=== PATIENT | male | born 1955 | race Caucasian/White ===

== ENCOUNTER 2017-03-22 06:07 | Emergency (ER) | payer OTHER ==
[2017-03-22 06:15] VITALS: BP 159/98
[2017-03-22 06:27] LABS: BILIRUBIN,URINE NEGATIVE (NEGATIVE); GLUCOSE, URINE (UA) NEGATIVE (NEGATIVE); KETONES,URINE (UA) NEGATIVE (NEGATIVE); LEUKOCYTE ESTERASE, URINE NEGATIVE (NEGATIVE); NITRITE,URINE NEGATIVE (NEGATIVE); OCCULT BLOOD,URINE LARGE (NEGATIVE); PROTEIN,URINE 30 mg/dL (NEGATIVE); UROBILINOGEN,URINE 0.2 (NORMAL) E.U./dL (NORMAL)
[2017-03-22 06:55] LABS: CLARITY,URINE CLOUDY (CLEAR)
[2017-03-22 06:56] LABS: BACTERIA,URINE None Seen /HPF (None Seen); RBC,URINE TNTC /HPF (0-5); SQUAMOUS EPITHELIAL CELL,UR RARE Squamous (<= Few)
[2017-03-22] MEDS ORDERED: SODIUM CHLORIDE 0.9% 1,000 ML IV ONE (06:59)
--- NOTE | 2017-03-22 07:02 | ED Physician Documentation ---
PD HPI ABD PAIN - Stated complaint Stated Complaint: KIDNEY PX - Chief complaint Chief Complaint: General - History obtained from History obtained from: Patient - History of Present Illness Timing - onset: How many days ago (2) Timing - duration: Days (2) Timing - details: Gradual onset, Still present, Waxing and waning Quality: Sharp, Pain Location: Suprapubic Associated symptoms: No: Fever, Nausea, Vomiting Similar symptoms before: Diagnosis (kidney stones) Recently seen: Not recently seen - Additional information Additional information: 62-year-old male who has a history of multiple prior kidney stones has developed pain in the bladder and a sensation that he is not able to urinate. He has been able to urinate since he arrived here to the emergency department and has had improvement in his pain. He describes the pain as a discomfort in his bladder area. He has had 12 kidney stones previously 9 of which have been removed surgically or with lithotripsy. He has had a urologist at [facility] and these doctors are no longer on his plan is he has had to switch to [place]. Review of Systems Constitutional: denies: Fever Nose: denies: Congestion Throat: denies: Sore throat Cardiac: denies: Chest pain / pressure, Palpitations Respiratory: denies: Dyspnea, Cough GI: reports: Abdominal Pain. denies: Nausea, Vomiting, Constipation, Diarrhea : reports: Dysuria, Unable to Void PD PAST MEDICAL HISTORY - Past Medical History Past Medical History: Yes Cardiovascular: Coronary artery disease : Kidney stones - Past Surgical History Past Surgical History: Yes Cardiovascular: CABG - Present Medications Home Medications: Ambulatory Orders Medication Instructions Recorded Confirmed Aspirin [Aspirin EC] 1 tab PO DAILY 03/22/17 03/22/17 Cholecalciferol (Vitamin D3) 4,000 unit PO DAILY 03/22/17 03/22/17 [Vitamin D3] Folic Acid [Folic Acid] 1 tab PO DAILY 03/22/17 03/22/17 HYDROcod/ACETAM 5/325 [[place] 5/325] 1 - 2 ea PO Q6H PRN #15 tablet 03/22/17 Lisinopril [Prinivil] 1 tab PO DAILY 03/22/17 03/22/17 Metoprolol Succinate [Toprol Xl] 1 tab PO DAILY 03/22/17 03/22/17 Niacin (Inositol Niacinate) 2,000 mg PO DAILY 03/22/17 03/22/17 [Niacin 500 mg Capsule] Sildenafil Citrate [Viagra] 1 tab PO PRN PRN 03/22/17 03/22/17 Simvastatin [Zocor] 80 mg PO DAILY 03/22/17 03/22/17 Tamsulosin HCl [Flomax] 0.4 mg PO DAILY #10 cap.er.24h 03/22/17 hydroCHLOROthiazide 1 tab PO DAILY 03/22/17 03/22/17 [Hydrochlorothiazide] - Allergies Allergies/Adverse Reactions: Allergies Allergy/AdvReac Type Severity Reaction Status Date / Time No Known Drug Allergies Allergy Verified 03/22/17 06:15 - Social History Does the pt smoke?: No Smoking Status: Never smoker Does the pt drink ETOH?: No Substance Use and Type: Marijuana - Immunizations Immunizations are current?: Yes PD ED PE NORMAL - Vitals Vital signs reviewed: Yes (Hypertensive) - General General: Alert and oriented X 3, No acute distress, Well developed/nourished - HEENT HEENT: Atraumatic, PERRL - Cardiac Cardiac: RRR, No murmur - Respiratory Respiratory: No respiratory distress, Clear bilaterally - Abdomen Abdomen: Soft, Non tender - Back Back: No CVA TTP, No spinal TTP - Derm Derm: Normal color, Warm and dry, No rash - Extremities Extremities: No deformity, No edema - Neuro Neuro: No motor deficit, No sensory deficit Eye Opening: Spontaneous Motor: Obeys Commands Verbal: Oriented GCS Score: 15 - Psych Psych: Normal mood, Normal affect Results - Vitals Vitals: Vital Signs - 24 hr 03/22/17 06:13 Temperature 36.3 C L Heart Rate 99 Respiratory 18 Rate Blood Pressure 159/98 H O2 Saturation 96 Oxygen O2 Source Room air - Labs Labs: Laboratory Tests 03/22/17 03/22/17 03/22/17 06:20 07:08 07:08 WBC 10.4 RBC 4.59 L Hgb 14.6 Hct 43.5 MCV 95.0 H MCH 31.8 H MCHC 33.5 RDW 14.4 Plt Count 250 MPV 7.7 Neut # 7.1 H Lymph # 2.1 [place] # 1.1 H Eos # 0.1 Baso # 0.0 Absolute Nucleated RBC 0.01 Nucleated RBC % 0.0 Sodium 138 Potassium 3.2 L Chloride 101 Carbon Dioxide 24 Anion Gap 13.0 BUN 22 H Creatinine 1.0 Estimated GFR (MDRD) 76 L Glucose 161 H Calcium 9.7 Total Bilirubin 0.7 AST 33 ALT 19 Alkaline Phosphatase 46 Total Protein 7.4 Albumin 4.5 Globulin 2.9 Albumin/Globulin Ratio 1.6 Lipase 24 Urine Color YELLOW Urine Clarity CLOUDY Urine pH 6.0 Ur Specific [place] >=1.030 H Urine Protein 30 H Urine Glucose (UA) NEGATIVE Urine Ketones NEGATIVE Urine Occult Blood LARGE H Urine Nitrite NEGATIVE Urine Bilirubin NEGATIVE Urine Urobilinogen 0.2 (NORMAL) Ur Leukocyte Esterase NEGATIVE Urine RBC TNTC H Urine WBC 0-3 Ur Squamous Epith Cells RARE Squamous Urine Bacteria None Seen Ur Microscopic Review INDICATED Urine Culture Comments NOT INDICATED - Rads (name of study) CT abd/pel without Radiology: Prelim report reviewed (Impression: 1. Moderate right hydronephrosis down to 2 adjacent calcifications or bilobed calcification measuring total 6 mm at the right ureterovesicular junction either in the intramural portion of the ureter or within the bladder. 2. Nonobstructing bilateral renal calcifications detailed above, right renal cysts. 3. Right adrenal 1.8 cm nodule. If there is no history of cancer follow-up can be at 12 months. If there is a history of cancer CT adrenal protocol recommended. 4. Diverticulosis. 5. At least 5 subcentimeter densities in the liver too small to characterize on noncontrast CT. 6.Other incidental findings as detailed above.) , EMP read indepedently, See rad report Procedures - IVC sono (time) 0650 Bedside IVC sono: IVC measures (cm) (1.02), IVC collapsed c insp (cm) (complete) , Dehydration (est 1+ liter deficit) PD MEDICAL DECISION MAKING - ED course Complexity details: considered differential, d/w patient ED course: 62-year-old male with a history of multiple kidney stones. He has not been able to Lateralize his stone pain previously. He does have suprapubic pain and a sensation today that he is unable to urinate. When he arrives to the emergency department he is able to urinate and bladder scanning following that is without urine. This is checked with a bedside ultrasound and confirmed. On bedside ultrasound as well he does have evidence of hydronephrosis on the right and not on the left both kidneys are sonographically nontender. He is dehydrated on interrogation of the inferior vena cava. IV is begun is given saline for hydration and a CT scan of the abdomen pelvis is obtained demonstrating a stone at the UVC or into the bladder. He is provided pain medication and he will follow up with Tommy for referral to urology as he has a 13.5mm stone on the left that will need lithotripsy. Departure - Departure Disposition: 01 Home, Self Care Clinical Impression: Ureterolithiasis Instructions: ED Stone Renal W Colic Follow-Up: Your, doctor [Other] Prescriptions: HYDROcod/ACETAM 5/325 [[place] 5/325] 1 - 2 ea PO Q6H PRN #15 tablet PRN Reason: Pain Tamsulosin HCl [Flomax] 0.4 mg PO DAILY #10 cap.er.24h Discharge Date/Time: 03/22/17 08:21
[2017-03-22 07:21] LABS: BASOPHILS % (AUTO) 0.3 %; EOSINOPHILS # (AUTO) 0.1 10^3/uL (0.0-0.7); EOSINOPHILS % (AUTO) 0.9 %; HGB - HEMOGLOBIN 14.6 g/dL (14.0-18.0); LYMPHOCYTES # (AUTO) 2.1 10^3/uL (1.5-3.5); LYMPHOCYTES % (AUTO) 20.5 %; MEAN CORPUSCULAR HEMOGLOBIN 31.8 pg (27.0-31.0); MEAN CORPUSCULAR HGB CONC 33.5 g/dL (32.0-36.0); MEAN PLATELET VOLUME 7.7 fL (7.4-11.4); MONOCYTES # (AUTO) 1.1 10^3/uL (0.0-1.0); MONOCYTES % (AUTO) 10.2 %; NEUTROPHILS # (AUTO) 7.1 10^3/uL (1.5-6.6); NEUTROPHILS % (AUTO) 68.1 %; PLT - PLATELET COUNT 250 10^3/uL (130-450); RED BLOOD COUNT 4.59 10^6/uL (4.70-6.10); RED CELL DISTRIBUTION WIDTH 14.4 % (12.0-15.0); WHITE BLOOD COUNT 10.4 x10^3/uL (4.8-10.8)
[2017-03-22 07:24] LABS: ALBUMIN 4.5 g/dL (3.2-5.5); ALBUMIN/GLOBULIN RATIO 1.6 (1.0-2.2); BILIRUBIN,TOTAL 0.7 mg/dL (0.2-1.0); CALCIUM 9.7 mg/dL (8.5-10.3); TOTAL PROTEIN 7.4 g/dL (6.7-8.2)
--- NOTE | 2017-03-22 07:52 | CT Report ---
EXAM: CT ABDOMEN AND PELVIS EXAM DATE: 03/22/2017 07:14 AM. CLINICAL HISTORY: Kidney stones hydro on right on bedside. COMPARISONS: None. TECHNIQUE: Routine helical CT imaging was performed through the abdomen and pelvis. IV contrast: None . Enteric contrast: No. Reconstructions: Coronal and sagittal. In accordance with CT protocol optimization, one or more of the following dose reduction techniques w ere utilized for this exam: automated exposure control, adjustment of mA and/or KV based on patient s ize, or use of iterative reconstructive technique. FINDINGS: Lung Bases: Unremarkable. Liver: At least 5 subcentimeter densities too small to characterize. Largest one measuring 1.0 cm is along the falciform ligament and is a cyst. Gallbladder/Bile Ducts: Unremarkable. Spleen: Normal. Pancreas: Normal. Adrenal Glands: Right adrenal 1.8 cm indeterminate density. Kidneys: Right kidney moderate right hydroureteronephrosis down to 2 adjacent calcifications or bilobed calcif ication measuring total 6 mm at the right ureterovesical junction either in the intramural portion of the ureter or within bladder. Right kidney has multiple nonobstructing calcifications largest 5 mm. Right renal cysts. Left kidney has multiple nonobstructing renal parenchymal calcifications largest 4 mm. There is a marsha tral 1.3 cm calcification in the renal pelvis without hydronephrosis Peritoneal Cavity/Bowel: diverticulosis. Acute inflammatory process. The appendix is well visualize d and normal. Small fat-containing umbilical hernia. Pelvic Organs: Bladder are unremarkable except for calcification. Prostate enlargement with calcifica tion. Surgical clips right inguinal region bilateral vascular stents Vasculature: Atherosclerotic changes Bones: DJD Other: None. IMPRESSION: 1. Moderate right hydroureteronephrosis down to 2 adjacent calcifications or bilobed calcification me asuring total 6 mm at the right ureterovesical junction either in the intramural portion of the urete r or within bladder. 2. Nonobstructing bilateral renal calcifications detailed above, right renal cysts. 3. Right adrenal 1.8 cm nodule. If there is no history of cancer follow-up can be at 12 months. If th ere is a history of cancer CT adrenal protocol recommended. 4. Diverticulosis. 5. At least 5 subcentimeter densities in the liver too small to characterize on noncontrast CT. 6. Other incidental findings as detailed above [facility] Referring Provider Line: [phone] SITE ID: [id number]
== END 2017-03-22 08:21 | disposition home or self-care (01) ==
LOC: ED 06:07
DX: N13.2 Hydronephrosis with renal and ureteral calculous obstruction (principal); D35.01 Benign neoplasm of right adrenal gland; E86.0 Dehydration; Z87.442 Personal history of urinary calculi; Z79.82 Long term (current) use of aspirin
CPT/HCPCS: 36415; 51798; 74176; 80053; 81001; 81003; 83690; 85025; 87086; 96360; 99283; 99284

== ENCOUNTER 2018-01-26 14:52 | Outpatient (CLI) | payer OTHER ==
--- NOTE | 2018-01-29 09:35 | Ultrasound Report ---
Reason: PVD Procedure Date: 01/26/2018 Accession Number: [id number] / [id number] Procedure: US - Duplex Lwr Ext Arterial Bilat CPT Code: FULL RESULT: EXAM: Bilateral Lower Extremity Arterial Doppler Ultrasound EXAM DATE: 01/26/2018 04:36 PM. CLINICAL HISTORY: PVD. COMPARISON: None. TECHNIQUE: Real-time sonographic vascular imaging was performed by the deputy sheriff/investigator, utilizing color-flow, Doppler flow, and spectral analysis. Multiple customer support representative static images were saved for review. FINDINGS: The patient has bilateral femoral popliteal bypass grafts which are patent on color and spectral Doppler interrogation. In the right lower extremity, brisk arterial upstrokes with normal triphasic waveforms are preserved throughout the arterial system to the level of the dorsalis pedis artery. In the left lower extremity, brisk arterial upstrokes with normal triphasic waveforms are preserved throughout the arterial system to the level of the dorsalis pedis artery. Bilateral femoral artery, femoral popliteal bypass graft, popliteal artery, anterior tibial artery, posterior tibial artery, peroneal artery and dorsalis pedis artery are all patent with the following peak systolic velocities in centimeters per second: Right: Common femoral: 137 Proximal anastomosis: 44 Mid graft: 59 Distal anastomosis: 66 Popliteal artery: 97 Anterior tibial artery: 69 Posterior tibial artery: 45 Peroneal artery: 43 Dorsalis pedis artery: 49 Left: Common femoral: 134 Proximal anastomosis: 50 Mid graft: 72 Distal anastomosis: 70 Popliteal artery: 66 Anterior tibial artery: 51 Posterior tibial artery: 56 Peroneal artery: 24 Dorsalis pedis artery: 51 IMPRESSION: Bilaterally patent femoral popliteal bypass grafts with preserved 3 vessel flow to both feet. No inflow or outflow stenosis is detected in either graft anastomosis. [facility]
== END 2018-01-26 14:53 | disposition home or self-care (01) ==
LOC: DI 14:52
PROVIDERS: ATTEND Family Medicine
DX: I73.9 Peripheral vascular disease, unspecified (principal)
CPT/HCPCS: 93925

== ENCOUNTER 2020-06-30 19:54 | Emergency (ER) | payer BC, OTHER ==
--- OUTSIDE RECORDS SUMMARY | 2020-06-30 20:22 | EXTERNAL MEDICAL SUMMARY RPT | Continuity of Care Document ---
:1955 Demographics Phone Unavailable Preferred Language Unknown Marital Status Unknown Sikhism Affiliation Unknown Race Unknown Ethnic Group Unknown Author Organization [facility] Address [address] [place] [address] Phone Allergies Encounters Medications Problems Results
--- NOTE | 2020-06-30 20:36 | ED Physician Documentation ---
PD HPI ABD PAIN - Stated complaint Stated Complaint: ABD PX/MALE - Chief complaint Chief Complaint: Abd Pain - History obtained from History obtained from: Patient - History of Present Illness Timing - onset: Today (onset this afternoon of right lower abd and flank pain. Also feeling of needing to have BM and tried several times for BM, with only small firm amounts out. Also noted red blood with wiping. Denies chest pain. No vomiting but has nausea. Has had kidney stone in past with similar.) Timing - duration: Hours (4-5) Timing - details: Abrupt onset, Still present Quality: Cramping, Aching, Pain Location: RLQ, Suprapubic Radiation: Right flank Improved by: No: Laying still, BM Worsened by: Palpation. No: Moving Associated symptoms: Nausea, Constipation (had not had BM for couple days, and with just firm small stools out this evening when trying hard to have stool.), Hematochezia. No: Fever, Vomiting, Diarrhea, Dysuria, Chest pain Similar symptoms before: Diagnosis (kidney stone in the past) Recently seen: Not recently seen (states has not been to PMD for awhile and had run out of usual BP meds months ago) Review of Systems Constitutional: denies: Fever, Chills Nose: denies: Rhinorrhea / runny nose, Congestion Throat: denies: Sore throat Respiratory: denies: Cough GI: reports: Abdominal Pain, Nausea, Constipation. denies: Vomiting, Diarrhea : denies: Dysuria, Frequency Skin: denies: Rash PD PAST MEDICAL HISTORY - Past Medical History Past Medical History: Yes Cardiovascular: Coronary artery disease Respiratory: None Neuro: None Endocrine/Autoimmune: None GI: Other : Kidney stones HEENT: None Psych: None Musculoskeletal: None Derm: None - Past Surgical History Past Surgical History: Yes Cardiovascular: CABG - Present Medications Home Medications: Ambulatory Orders Medication Instructions Recorded Confirmed Tamsulosin HCl [Flomax] 0.4 mg PO DAILY #10 cap.er.24h 03/22/17 07/01/20 - Allergies Allergies/Adverse Reactions: Allergies Allergy/AdvReac Type Severity Reaction Status Date / Time No Known Drug Allergies Allergy Verified 06/30/20 20:15 - Social History Does the pt smoke?: No Smoking Status: Never smoker Does the pt drink ETOH?: No Does the pt have substance abuse?: No - Immunizations Immunizations are current?: Yes - POLST Patient has POLST: No PD ED PE NORMAL - Vitals Vital signs reviewed: Yes - General General: Alert and oriented X 3, Well developed/nourished, Other (appears in considerable pain) - HEENT HEENT: Pharynx benign - Neck Neck: Supple, no meningeal sign, No adenopathy - Cardiac Cardiac: RRR, No murmur - Respiratory Respiratory: Clear bilaterally - Abdomen Abdomen: Soft, Non distended, No organomegaly, Other (And her in the lower abdomen midline and right with right mid abdominal tenderness. No percussion tenderness. No rebound.) - Male Male : Deferred - Rectal Rectal: Other (There is some small external and internal hemorrhoids that are tender and mildly inflamed with some red blood at the anal sphincter.) - Derm Derm: Normal color, Warm and dry - Extremities Extremities: No tenderness to palpate, Normal ROM s pain, No edema, No calf tenderness / cord - Neuro Neuro: Alert and oriented X 3, No motor deficit, Normal speech Results - Vitals Vitals: Vital Signs - 24 hr 06/30/20 06/30/20 07/01/20 20:10 22:26 01:11 Temperature 36.6 C Heart Rate 49 L 84 81 Respiratory 20 18 15 Rate Blood Pressure 226/86 H 228/94 H O2 Saturation 98 95 95 07/01/20 07/01/20 07/01/20 02:08 02:24 02:40 Temperature Heart Rate 87 83 Respiratory 19 18 19 Rate Blood Pressure 202/90 H 209/84 H O2 Saturation 94 96 07/01/20 02:45 Temperature Heart Rate 88 Respiratory 15 Rate Blood Pressure 210/107 H O2 Saturation 97 Oxygen O2 Source Nasal cannula - Labs Labs: Laboratory Tests 06/30/20 06/30/20 06/30/20 00:22 21:13 21:13 WBC 13.8 H RBC 4.92 Hgb 16.2 Hct 47.9 MCV 97.4 H MCH 32.9 H MCHC 33.8 RDW 14.3 Plt Count 224 MPV 10.1 Neut # (Auto) 10.5 H Lymph # (Auto) 1.7 [place] # (Auto) 1.1 H Eos # (Auto) 0.4 Baso # (Auto) 0.1 Absolute Nucleated RBC 0.00 Nucleated RBC % 0.0 Sodium 139 Potassium 4.2 Chloride 106 Carbon Dioxide 23 Anion Gap 10.0 BUN 21 H Creatinine 1.0 Estimated GFR (MDRD) 75 L Glucose 186 H Calcium 9.0 Total Bilirubin 0.8 AST 45 H ALT 33 Alkaline Phosphatase 77 Total Protein 7.9 Albumin 4.7 Globulin 3.2 Albumin/Globulin Ratio 1.5 Lipase 42 Urine Color YELLOW Urine Clarity HAZY Urine pH 7.0 Ur Specific [place] 1.020 Urine Protein 30 H Urine Glucose (UA) 250 H Urine Ketones NEGATIVE Urine Occult Blood LARGE H Urine Nitrite POSITIVE H Urine Bilirubin NEGATIVE Urine Urobilinogen 0.2 (NORMAL) Ur Leukocyte Esterase NEGATIVE Urine RBC 11-25 H Urine WBC 6-10 H Ur Squamous Epith Cells RARE Squamous Urine Bacteria Rare Ur Microscopic Review INDICATED Urine Culture Comments INDICATED - Rads (name of study) abd/pelvic CT Radiology: Prelim report reviewed (5 mm stone in the distal right ureter 6 cm above the bladder with severe hydronephrosis and stranding.), See rad report PD MEDICAL DECISION MAKING - ED course Complexity details: reviewed results (Kidney stone with severe hydronephrosis and intractable pain as well as concern for UTI by urinalysis. He does not look septic but does have elevated white count. Incidental of hemorrhoids with some mild bleeding from recent pushing for bowel movement.), re-evaluated patient (Patient has improved pain but only to a moderate level and it returns promptly enough and has been needing repeated doses of medicines for moderate comfort. I think he will need ongoing IV medications.), considered differential (consider kidney stone versus diverticulitis, and also aortic process given the hypertension. Will get labs and CT. ), d/w patient, d/w medical record consultant (Dr. Linares, urology, who was pleasant and stated the patient could reasonably be transferred for intractable pain and treated with antibiotics and medication on the hospitalist service.), other (Spoke with Dr. Mendoza who is on for the hospitalist service who accepted transfer of the patient.) Departure - Departure Disposition: 02 Transfer Acute Care Hosp Clinical Impression: Intractable abdominal pain, Ureterolithiasis Urinary tract infection Qualifiers: Urinary tract infection type: site unspecified Hematuria presence: with hematuria Qualified Code(s): N39.0 - Urinary tract infection, site not specified; R31.9 - Hematuria, unspecified Hypertension Qualifiers: Hypertension type: unspecified Qualified Code(s): I10 - Essential (primary) hypertension Hemorrhoids Qualifiers: Hemorrhoid type: unspecified Qualified Code(s): K64.9 - Unspecified hemorrhoids Condition: Stable Record reviewed to determine appropriate education?: Yes
[2020-06-30] MEDS ORDERED: HYDROmorphone 1 MG/ML CARPUJECT IVP STA ×2 (21:03→22:51)
[2020-06-30] MEDS ORDERED: KETOROLAC 15 MG/ML VIAL IVP STA (21:03)
[2020-06-30] MEDS ORDERED: ONDANSETRON 4 MG/2 ML VIAL IVP STA (21:03)
[2020-06-30] MEDS ORDERED: SODIUM CHLORIDE 0.9% 1,000 ML IV STA ×2 (21:03→22:51)
[2020-06-30 21:18] LABS: BASOPHILS # (AUTO) 0.1 10^3/uL (0.0-0.1); BASOPHILS % (AUTO) 0.5 %; EOSINOPHILS # (AUTO) 0.4 10^3/uL (0.0-0.7); EOSINOPHILS % (AUTO) 3.1 %; HCT - HEMATOCRIT 47.9 % (42.0-52.0); HGB - HEMOGLOBIN 16.2 g/dL (14.0-18.0); LYMPHOCYTES # (AUTO) 1.7 10^3/uL (1.5-3.5); LYMPHOCYTES % (AUTO) 12.4 %; MEAN CORPUSCULAR HEMOGLOBIN 32.9 pg (27.0-31.0); MEAN CORPUSCULAR HGB CONC 33.8 g/dL (32.0-36.0); MEAN CORPUSCULAR VOLUME 97.4 fL (80.0-94.0); MEAN PLATELET VOLUME 10.1 fL (7.4-11.4); MONOCYTES # (AUTO) 1.1 10^3/uL (0.0-1.0); NEUTROPHILS # (AUTO) 10.5 10^3/uL (1.5-6.6); NEUTROPHILS % (AUTO) 75.7 %; PLT - PLATELET COUNT 224 10^3/uL (130-450); RED BLOOD COUNT 4.92 10^6/uL (4.70-6.10); RED CELL DISTRIBUTION WIDTH 14.3 % (12.0-15.0); WHITE BLOOD COUNT 13.8 x10^3/uL (4.8-10.8)
[2020-06-30] MEDS ORDERED: IOVERSOL 320 100 ML VIAL IVP ONE ×2 (21:22→22:03)
[2020-06-30 21:32] LABS: ALBUMIN 4.7 g/dL (3.2-5.5); ALBUMIN/GLOBULIN RATIO 1.5 (1.0-2.2); BILIRUBIN,TOTAL 0.8 mg/dL (0.2-1.0); POTASSIUM 4.2 mmol/L (3.5-5.0); TOTAL PROTEIN 7.9 g/dL (6.7-8.2)
[2020-06-30] MEDS ORDERED: BISACODYL 10 MG SUPP PR STA (22:17)
[2020-06-30] MEDS ORDERED: LIDOCAINE-MPF 2% 8 ML in SODIUM CHLORIDE 0.9% 50 ML IV STA (22:51)
[2020-06-30] MEDS ORDERED: LIDOCAINE-MPF 2% 5 ML VIAL ONE (22:57)
[2020-07-01 00:26] LABS: BILIRUBIN,URINE NEGATIVE (NEGATIVE); GLUCOSE, URINE (UA) 250 mg/dL (NEGATIVE); KETONES,URINE (UA) NEGATIVE (NEGATIVE); LEUKOCYTE ESTERASE, URINE NEGATIVE (NEGATIVE); NITRITE,URINE POSITIVE (NEGATIVE); OCCULT BLOOD,URINE LARGE (NEGATIVE); PROTEIN,URINE 30 mg/dL (NEGATIVE); UROBILINOGEN,URINE 0.2 (NORMAL) E.U./dL (NORMAL)
[2020-07-01] MEDS ORDERED: HYDROmorphone 1 MG/ML CARPUJECT IVP STA ×3 (00:26→05:02)
[2020-07-01 00:34] LABS: CLARITY,URINE HAZY (CLEAR)
[2020-07-01 00:35] LABS: BACTERIA,URINE Rare /HPF (None Seen); SQUAMOUS EPITHELIAL CELL,UR RARE Squamous (<= Few)
[2020-07-01] MEDS ORDERED: cefTRIAXone 1 GM VIAL IVP STA (00:59)
[2020-07-01] MEDS ORDERED: ENALAPRILAT 1.25 MG/ML VIAL IVP STA ×2 (01:24→02:52)
[2020-07-01] MEDS ORDERED: LOSARTAN 50 MG TABLET PO STA (02:52)
[2020-07-01] MEDS ORDERED: KETAMINE 500 MG/10 ML VIAL IVP STA (02:53)
[2020-07-01 02:54] LABS: B. PARAPERTUSSIS- RESP PCR PAN NOT DETECTED; B. PERTUSSIS- RESP PCR PANEL NOT DETECTED; C. PNEUMONIAE- RESP PCR PANEL NOT DETECTED; CORONAVIRUS 229E-RESP PCR NOT DETECTED; CORONAVIRUS HKU1-RESP PCR NOT DETECTED; CORONAVIRUS NL63-RESP PCR NOT DETECTED; CORONAVIRUS OC43-RESP PCR NOT DETECTED; HUMAN METAPNEUMOVIRUS NOT DETECTED; INFLUENZA A- RESP PCR PANEL NOT DETECTED; INFLUENZA B - RESP PCR PANEL NOT DETECTED; M. PNEUMONIAE- RESP PCR PANEL NOT DETECTED; PARAINFLUENZA VIRUS 1 NOT DETECTED; PARAINFLUENZA VIRUS 2 NOT DETECTED; PARAINFLUENZA VIRUS 3 NOT DETECTED; PARAINFLUENZA VIRUS 4 NOT DETECTED; RHINOVIRUS/ENTEROVIRUS NOT DETECTED; RSV- RESP PCR PANEL NOT DETECTED; SARS-CoV-2 -RESP PCR PANEL NOT DETECTED
[2020-07-01] MEDS ORDERED: KETOROLAC 15 MG/ML VIAL IVP STA (05:02)
[2020-07-01 05:03] VITALS: BP 204/88
--- NOTE | 2020-07-01 08:44 | CT Report ---
PROCEDURE: Abdomen/Pelvis W INDICATIONS: LLQ Abdominal pain, diverticulitis suspected CONTRAST: IV CONTRAST: Optiray 320 ml: 100 PO CONTRAST: *NO PO CONTRAST TECHNIQUE: After the administration of IV contrast, 5 mm thick sections acquired from the diaphragms to the symp hysis. 5 mm thick coronal and sagittal reformats were acquired. For radiation dose reduction, the f ollowing was used: automated exposure control, adjustment of mA and/or kV according to patient size. COMPARISON: 03/22/2017 CT abdomen pelvis FINDINGS: ABDOMEN: Lung bases: Scattered subsegmental scarring/atelectasis. No acute consolidation. Heart: Borderline enlarged Liver: Hepatic steatosis. Hepatic foci statistically representing cysts although technically indeterm inate due to small size. Gallbladder: Unremarkable Bile ducts: Normal. Pancreas: Normal. Spleen: Normal. Adrenals: Right adrenal nodule measuring 2.0 cm, previously 1.9 cm, indeterminate. Kidneys and ureters: Multiple left renal calculi are seen measuring up to 2 mm on the left and up to 1.2 cm on the right (inferior pole, attenuation measuring 310 Hounsfield units). There is right perin ephric stranding. There is right severe hydronephrosis and moderate hydroureter related to a ureteral calculus measuring 5 mm seen on image 74/3, attenuation measures 161 Hounsfield units. Inferior to t his the right ureter appears decompressed. Left ureter appears decompressed. Stomach and duodenum: Normal. Bowel: Normal. The appendix. Colonic diverticulosis incidentally noted without evidence of acute infl ammation. No evidence of bowel obstruction identified. Other: No free fluid or air. Abdominal nodes: Normal. Aorta: Normal in size. Scattered vascular calcifications. IVC: Normal. Ventral wall: Normal. PELVIS: Bladder: Normal. No bladder calculi seen Pelvic nodes: Normal. Inguinal: No hernia. Bones: Spondylitic changes and facet arthropathy. No fracture. IMPRESSION: 5 mm right ureteral stone with urinary obstruction as above. Additional bilateral nephrolithiasis measuring up to 1.2 cm on the right and 2 mm on the left. Right adrenal nodule, statistically reflects lipid poor adenoma although technically indeterminate at tenuation. This is stable to minimally increased in size since the prior study.Further evaluation wit h dedicated adrenal protocol MRI or continued long-term surveillance with CT could be performed to do cument stability. Findings are concordant with the preliminary study interpretation provided at the time of the study. Additional chronic and incidental findings as above. No evidence of acute diverticulitis. Reviewed by: Pranav Oropeza MD on 07/01/2020 8:42 AM PDT Approved by: Pranav Oropeza MD on 07/01/2020 8:42 AM PDT Station ID: [id number]
== END 2020-07-01 05:28 | disposition short-term general hospital (02) ==
LOC: ED 19:54
DX: N13.2 Hydronephrosis with renal and ureteral calculous obstruction (principal); N39.0 Urinary tract infection, site not specified; R31.9 Hematuria, unspecified; K64.8 Other hemorrhoids; K64.4 Residual hemorrhoidal skin tags; I10 Essential (primary) hypertension; Z20.822 Contact with and (suspected) exposure to COVID-19
CPT/HCPCS: 0202U; 36415; 74177; 80053; 81001; 83690; 85025; 87086; 96361; 96374; 96375; 96376; 99284; 99285; A9270; J1170; J7040; Q9967; 81003; 87077

== ENCOUNTER 2020-07-01 05:24 | Outpatient (CLI) | payer BC | END 2020-07-01 05:25 | disposition short-term general hospital (02) | LOC: EMS 05:24 | PROVIDERS: ATTEND Emergency Medicine | DX: N20.0 Calculus of kidney (principal) | CPT/HCPCS: A0425; A0428 ==

== ENCOUNTER 2020-07-10 04:45 | Emergency (ER) | payer BC ==
--- OUTSIDE RECORDS SUMMARY | 2020-07-10 04:49 | EXTERNAL MEDICAL SUMMARY RPT | Continuity of Care Document ---
:1955 Demographics Phone Unavailable Preferred Language Unknown Marital Status Unknown Restorationism Affiliation Unknown Race Unknown Ethnic Group Unknown Author Organization [facility] Address [address] [place] [address] Phone Allergies Encounters Medications Problems Results
--- NOTE | 2020-07-10 05:01 | ED Physician Documentation ---
PD HPI LOWER EXT INJURY - Stated complaint Stated Complaint: LEG NUMBNESS/COLD - Chief complaint Chief Complaint: Ext Problem - History obtained from History obtained from: Patient - History of Present Illness PD HPI LOW EXT INJURY LOCATION: Left, Lower leg, Foot Type of injury: Other (he has noted cramping and burning feeling in both calves and feet with walking the past 5-6 days. Has had feeling of coldness left lower leg and foot the past couple days.). No: Fall, Twist Where injury occurred: Other (No particular injury per se. He had been hosp italized for kidney stone with intractable pain and had a stent placed on July 01 and discharged the . Did not notice the leg pains prior to that nor in the hospital. Had few med changes in the hospital and upon discharge: new BP med, tamsulosin.) Timing - onset: How many days ago (5-6 days of claudication/ pain with walking, and couple days left leg feeling cool/pale.) Timing - details: Gradual onset, Waxing and waning Improved by: Rest Worsened by: Moving, Other (walking mainly) Associated symptoms: Tingling (leg lower leg and foot for couple days.), Discolored (pallor left lower leg). No: Weakness, Swelling Similar symptoms before: Diagnosis (had PVD with fem-pop bypass both legs about 15 years ago at by Vascular surgeon. Last follow up was about 6 years ago. Pt had recently run out of usual meds (BP med and ASA) several months ago.) Recently seen: Emergency Dept, Admitted (for kidney stone on left, with stent placed and pain minimal the past week.) Review of Systems Constitutional: denies: Fever, Chills Nose: denies: Rhinorrhea / runny nose, Congestion Throat: denies: Sore throat Cardiac: reports: Calf pain (with walking). denies: Chest pain / pressure, Palpitations, Pedal edema Respiratory: denies: Dyspnea, Cough GI: reports: Abdominal Pain. denies: Nausea, Vomiting, Diarrhea : reports: Hematuria (since stent placement, no clots.) Skin: denies: Rash, Lesions Neurologic: reports: Generalized weakness, Numbness. denies: Focal weakness, Near syncope PD PAST MEDICAL HISTORY - Past Medical History Cardiovascular: Coronary artery disease, Peripheral Vascular Disease (fem-pop bypass both legs about 15 years ago at . ) Respiratory: None Neuro: None Endocrine/Autoimmune: None GI: Other : Kidney stones HEENT: None Psych: None Musculoskeletal: None Derm: None - Past Surgical History Past Surgical History: Yes Cardiovascular: CABG - Present Medications Home Medications: Ambulatory Orders Medication Instructions Recorded Confirmed Tamsulosin HCl [Flomax] 0.4 mg PO DAILY #10 cap.er.[id number] 03/22/17 07/10/20 Linezolid [Zyvox] 600 mg PO ONCE 07/10/20 07/10/20 Lisinopril [Zestril] 10 mg PO DAILY 07/10/20 07/10/20 Metoprolol Succinate [Toprol Xl] 25 mg PO BID 07/10/20 07/10/20 Trazodone HCl 50 mg PO DAILY 07/10/20 07/10/20 amLODIPine [Norvasc] 10 mg PO DAILY 07/10/20 07/10/20 hydrALAZINE [Apresoline] 10 mg PO TID 07/10/20 07/10/20 - Allergies Allergies/Adverse Reactions: Allergies Allergy/AdvReac Type Severity Reaction Status Date / Time No Known Drug Allergies Allergy Verified 07/10/20 04:57 - Social History Does the pt smoke?: No Smoking Status: Never smoker Does the pt drink ETOH?: No Does the pt have substance abuse?: No - Immunizations Immunizations are current?: Yes - POLST Patient has POLST: No PD ED PE NORMAL - Vitals Vital signs reviewed: Yes - General General: Alert and oriented X 3, Well developed/nourished - Neck Neck: Supple, no meningeal sign, No adenopathy - Cardiac Cardiac: RRR, No murmur - Respiratory Respiratory: Clear bilaterally - Abdomen Abdomen: Normal bowel sounds, Soft, Non distended, No organomegaly - Derm Derm: No: Normal color (generally good color but left lower leg and foot are pale from below knee. I can feel some pulse left popliteal, but not DP nor post tibial. Faint pulses on right and with reasonable color/cap refill right. Left with pallor in toes. Stiff for movement of toes/ankle on left. ) - Neuro Neuro: Alert and oriented X 3, No motor deficit, Normal speech, Other (decreased sensation to touch left foot. ) Results - Vitals Vitals: Vital Signs - 24 hr 07/10/20 07/10/20 04:54 05:00 Temperature 36.0 C L Heart Rate 95 Respiratory 16 16 Rate Blood Pressure 206/93 H O2 Saturation 98 Oxygen O2 Source Room air PD MEDICAL DECISION MAKING - ED course Complexity details: reviewed results, considered differential, d/w patient
[2020-07-10] MEDS ORDERED: ASPIRIN CHEW 81 MG TABLET PO STA (05:20)
[2020-07-10] MEDS ORDERED: KETOROLAC 15 MG/ML VIAL IVP STA (05:20)
[2020-07-10] MEDS ORDERED: SODIUM CHLORIDE 0.9% 1,000 ML IV STA (05:20)
--- OUTSIDE RECORDS SUMMARY | 2020-07-10 05:32 | EXTERNAL MEDICAL SUMMARY RPT | Continuity of Care Document ---
:1955 Demographics Phone Unavailable Preferred Language Unknown Marital Status Unknown [place] Affiliation Unknown Race Unknown Ethnic Group Unknown Author Organization [facility] Address [address] [place] [address] Phone Allergies Encounters Medications Problems Results
[2020-07-10 05:56] LABS: BASOPHILS # (AUTO) 0.1 10^3/uL (0.0-0.1); BASOPHILS % (AUTO) 0.6 %; EOSINOPHILS # (AUTO) 0.3 10^3/uL (0.0-0.7); EOSINOPHILS % (AUTO) 2.9 %; HCT - HEMATOCRIT 39.1 % (42.0-52.0); HGB - HEMOGLOBIN 13.2 g/dL (14.0-18.0); LYMPHOCYTES # (AUTO) 1.9 10^3/uL (1.5-3.5); LYMPHOCYTES % (AUTO) 16.1 %; MEAN CORPUSCULAR HEMOGLOBIN 33.3 pg (27.0-31.0); MEAN CORPUSCULAR HGB CONC 33.8 g/dL (32.0-36.0); MEAN CORPUSCULAR VOLUME 98.7 fL (80.0-94.0); MEAN PLATELET VOLUME 9.4 fL (7.4-11.4); MONOCYTES # (AUTO) 0.9 10^3/uL (0.0-1.0); MONOCYTES % (AUTO) 7.5 %; NEUTROPHILS # (AUTO) 8.5 10^3/uL (1.5-6.6); NEUTROPHILS % (AUTO) 72.5 %; PLT - PLATELET COUNT 275 10^3/uL (130-450); RED BLOOD COUNT 3.96 10^6/uL (4.70-6.10); RED CELL DISTRIBUTION WIDTH 13.7 % (12.0-15.0); WHITE BLOOD COUNT 11.8 x10^3/uL (4.8-10.8)
[2020-07-10 06:04] LABS: CALCIUM 8.6 mg/dL (8.5-10.3); CREATININE 1.1 mg/dL (0.6-1.2); POTASSIUM 4.4 mmol/L (3.5-5.0)
[2020-07-10 07:47] VITALS: BP 133/64
--- NOTE | 2020-07-10 07:58 | ED Physician Documentation ---
ED Addendum - Addendum Addendum: 07/10/20 07:54 Patient endorsed to me by Dr. Cox awaiting ultrasound. Patient endorsing mild pain at rest, worse with walking. also with subjective and objective cold sensation to L foot since yesterday afternoon with intact sensation. Mildly diminished muscle strength on the left compared to the right however he is able to flex the toes, has full range of motion of the ankle, can lift the leg and keep it in the air with mild drift against gravity compared to the right. Inta ct sensation objectively. Unable to Doppler DP or PT pulse. paged Dr. Kuo at [facility]. 07/13/20 00:25 Impression 1. arterial occlusion of left lower extremity 2. severe peripheral artery disease 07/13/20 00:26
[2020-07-10] MEDS ORDERED: LINEZOLID 600 MG/300 ML 600 MG/300 ML BAG IV STA (08:29)
[2020-07-10 08:38] LABS: PT - PROTHROMBIN TIME 11.4 secs (9.9-12.6)
[2020-07-10 08:46] LABS: PARTIAL THROMBOPLASTIN TIME 27.1 secs (24.9-33.3)
[2020-07-10 08:49] LABS: B. PARAPERTUSSIS- RESP PCR PAN NOT DETECTED; B. PERTUSSIS- RESP PCR PANEL NOT DETECTED; C. PNEUMONIAE- RESP PCR PANEL NOT DETECTED; CORONAVIRUS 229E-RESP PCR NOT DETECTED; CORONAVIRUS HKU1-RESP PCR NOT DETECTED; CORONAVIRUS NL63-RESP PCR NOT DETECTED; CORONAVIRUS OC43-RESP PCR NOT DETECTED; HUMAN METAPNEUMOVIRUS NOT DETECTED; INFLUENZA A- RESP PCR PANEL NOT DETECTED; INFLUENZA B - RESP PCR PANEL NOT DETECTED; M. PNEUMONIAE- RESP PCR PANEL NOT DETECTED; PARAINFLUENZA VIRUS 1 NOT DETECTED; PARAINFLUENZA VIRUS 2 NOT DETECTED; PARAINFLUENZA VIRUS 3 NOT DETECTED; PARAINFLUENZA VIRUS 4 NOT DETECTED; RHINOVIRUS/ENTEROVIRUS NOT DETECTED; RSV- RESP PCR PANEL NOT DETECTED; SARS-CoV-2 -RESP PCR PANEL NOT DETECTED
[2020-07-10] MEDS ORDERED: HEPARIN 25000UNITS/500ML (D5W) 25,000 UNIT/500 ML BAG IV SCH (09:00)
--- NOTE | 2020-07-10 09:59 | Ultrasound Report ---
PROCEDURE: Duplex Lwr Ext Arterial Bilat INDICATIONS: bilat leg pains with walking; left leg cool/pale TECHNIQUE: Color and pulse Doppler interrogation was performed of both lower extremity arterial systems, with im age documentation. COMPARISON: CT abdomen/pelvis 06/30/2020 FINDINGS: Right lower extremity: Common femoral artery: 165 cm/sec, with biphasic flow. Deep femoral artery: Not seen. The iriwdqf-tr-[id number] bypass graft appears patent without pseudoane urysm at the anastomosis proximally. The anastomosis flow velocity is focally elevated at 1 93 cm/s. At the proximal graft the flow veloci ty is 94.5 cm/s, biphasic. At the middle third of the graft the flow velocities 72 cm/s, biphasic. At the distal graft the flow velocities 57 cm/s, biphasic. At the distal anastomosis focally the flow v elocity is mildly elevated at 1 75 cm/s, monophasic. The distal [place] popliteal artery shows a flow velocity of 1 45 cm/s, monophasic. Posterior tibial arterial flow is 110 cm/s, with monophasic. The a nterior tibial artery/dorsalis pedis flow velocity is 86/70 2 cm/s, both monophasic. Left lower extremity: Common femoral artery: 59 cm/sec, with monophasic flow. Deep femoral artery: Not seen Proximal rxsxrzw-[id number]-[id number] bypass graft anastomosis shows elevated flow velocity at 1 27 cm/s, foc ally and then there is reduced flow velocity within the proximal third of the graft and monophasic fl ow, 16 cm/s. Occlusion at the middle and distal thirds of the graft is present. The [place] popliteal artery appears to reperfuse by collateral flow with 25 cm/s flow velocity, monophasic. The posterior tibial arterial flow is also slow, at 15 cm/s, monophasic as is the anterior tibial artery/dorsalis p shari measuring 11.7 cm/s monophasic flow at the anterior tibial artery but occlusion at the dorsalis pedis.. IMPRESSION: Severe atherosclerotic arterial insufficiency to the lower extremities bilaterally, left greater than right, with prior [id number]-[id number] bilateral bypass grafts present. As discussed there is occlus ion within the middle and distal thirds of the left-sided bypass graft. The right-sided bypass graft is patent but at the anastomosis there appears to be a high-grade stricture distally, at the poplitea l level, with focally elevated flow velocity and monophasic flow from that point inferiorly. Reviewed by: Albert Lopez MD on 07/10/2020 8:57 AM ROBIN Approved by: Albert Lopez MD on 07/10/2020 8:57 AM ROBIN Station ID: [id number]
== END 2020-07-10 08:50 | disposition short-term general hospital (02) ==
LOC: ED 04:45
DX: I70.90 Unspecified atherosclerosis (principal); I73.9 Peripheral vascular disease, unspecified; Z95.1 Presence of aortocoronary bypass graft; Z20.822 Contact with and (suspected) exposure to COVID-19
CPT/HCPCS: 0202U; 36415; 80048; 82550; 83605; 85025; 85610; 85730; 93925; 96374; 96375; 99284; 99285; A9270; J2020

== ENCOUNTER 2020-07-20 14:18 | Outpatient (CLI) | payer BC | END 2020-07-20 14:19 | disposition home or self-care (01) | LOC: LAB.S 14:18 | DX: T82.898A Other specified complication of vascular prosthetic devices, implants and grafts, initial encounter (principal) | CPT/HCPCS: 36416; 85610 ==

== ENCOUNTER 2020-07-27 11:14 | Outpatient (CLI) | payer BC | END 2020-07-27 11:15 | disposition home or self-care (01) | LOC: LAB.S 11:14 | DX: T82.898A Other specified complication of vascular prosthetic devices, implants and grafts, initial encounter (principal) | CPT/HCPCS: 36416; 85610 ==

== ENCOUNTER 2020-08-11 10:54 | Outpatient (CLI) | payer BC | END 2020-08-11 10:55 | disposition home or self-care (01) | LOC: LAB.S 10:54 | DX: Z51.81 Encounter for therapeutic drug level monitoring (principal); Z79.899 Other long term (current) drug therapy | CPT/HCPCS: 36416; 85610 ==

== ENCOUNTER 2020-08-17 08:34 | Outpatient (CLI) | payer BC | END 2020-08-17 08:35 | disposition home or self-care (01) | LOC: LAB.S 08:34 | DX: Z51.81 Encounter for therapeutic drug level monitoring (principal) | CPT/HCPCS: 36416; 85610 ==

== ENCOUNTER 2020-08-31 08:53 | Outpatient (CLI) | payer BC | END 2020-08-31 08:54 | disposition home or self-care (01) | LOC: LAB.S 08:53 | PROVIDERS: ATTEND Pharmacist | DX: Z51.81 Encounter for therapeutic drug level monitoring (principal) | CPT/HCPCS: 36416; 85610 ==

== ENCOUNTER 2020-09-03 10:13 | Outpatient (CLI) | payer BC | END 2020-09-03 10:14 | disposition home or self-care (01) | LOC: LAB.S 10:13 | PROVIDERS: ATTEND Pharmacist | DX: Z51.81 Encounter for therapeutic drug level monitoring (principal) | CPT/HCPCS: 36416; 85610 ==

== ENCOUNTER 2020-09-10 08:29 | Outpatient (CLI) | payer BC | END 2020-09-10 08:30 | disposition home or self-care (01) | LOC: LAB.S 08:29 | PROVIDERS: ATTEND Pharmacist | DX: Z51.81 Encounter for therapeutic drug level monitoring (principal) | CPT/HCPCS: 36416; 85610 ==

== ENCOUNTER 2020-09-21 09:02 | Outpatient (CLI) | payer BC | END 2020-09-21 09:03 | disposition home or self-care (01) | LOC: LAB.S 09:02 | PROVIDERS: ATTEND Pharmacist | DX: Z51.81 Encounter for therapeutic drug level monitoring (principal) | CPT/HCPCS: 36416; 85610 ==

== ENCOUNTER 2020-10-05 08:07 | Outpatient (CLI) | payer BC | END 2020-10-05 08:08 | disposition home or self-care (01) | LOC: LAB.S 08:07 | PROVIDERS: ATTEND Pharmacist | DX: Z51.81 Encounter for therapeutic drug level monitoring (principal) | CPT/HCPCS: 36416; 85610 ==

== ENCOUNTER 2020-10-19 11:21 | Outpatient (CLI) | payer BC | END 2020-10-19 11:22 | disposition home or self-care (01) | LOC: LAB.S 11:21 | PROVIDERS: ATTEND Pharmacist | DX: T82.898A Other specified complication of vascular prosthetic devices, implants and grafts, initial encounter (principal) | CPT/HCPCS: 36416; 85610 ==

== ENCOUNTER 2020-11-03 08:11 | Outpatient (CLI) | payer BC | END 2020-11-03 08:12 | disposition home or self-care (01) | LOC: LAB.S 08:11 | PROVIDERS: ATTEND Pharmacist | DX: T82.898A Other specified complication of vascular prosthetic devices, implants and grafts, initial encounter (principal) | CPT/HCPCS: 36416; 85610 ==

== ENCOUNTER 2020-11-11 08:09 | Outpatient (CLI) | payer BC ==
[2020-11-11 15:15] LABS: INR 4.1 (0.8-1.2); PT - PROTHROMBIN TIME 45.5 secs (9.9-12.6)
== END 2020-11-11 08:10 | disposition home or self-care (01) ==
LOC: LAB.S 08:09
PROVIDERS: ATTEND Pharmacist
DX: T82.898A Other specified complication of vascular prosthetic devices, implants and grafts, initial encounter (principal)
CPT/HCPCS: 36415; 36416; 85610

== ENCOUNTER 2020-12-01 08:07 | Outpatient (CLI) | payer BC | END 2020-12-01 08:08 | disposition home or self-care (01) | LOC: LAB.S 08:07 | PROVIDERS: ATTEND Pharmacist | DX: T82.898A Other specified complication of vascular prosthetic devices, implants and grafts, initial encounter (principal) | CPT/HCPCS: 36416; 85610 ==

== ENCOUNTER 2020-12-15 08:14 | Outpatient (CLI) | payer BC | END 2020-12-15 08:15 | disposition home or self-care (01) | LOC: LAB.S 08:14 | PROVIDERS: ATTEND Pharmacist | DX: T82.898A Other specified complication of vascular prosthetic devices, implants and grafts, initial encounter (principal) | CPT/HCPCS: 36416; 85610 ==

== ENCOUNTER 2020-12-29 10:01 | Outpatient (CLI) | payer BC | END 2020-12-29 10:02 | disposition home or self-care (01) | LOC: LAB.S 10:01 | PROVIDERS: ATTEND Pharmacist | DX: T82.898A Other specified complication of vascular prosthetic devices, implants and grafts, initial encounter (principal) | CPT/HCPCS: 36416; 85610 ==

== ENCOUNTER 2021-01-06 08:28 | Outpatient (CLI) | payer BC | END 2021-01-06 08:29 | disposition home or self-care (01) | LOC: LAB.S 08:28 | PROVIDERS: ATTEND Pharmacist | DX: T82.898A Other specified complication of vascular prosthetic devices, implants and grafts, initial encounter (principal) | CPT/HCPCS: 36416; 85610 ==

== ENCOUNTER 2021-01-25 08:41 | Outpatient (CLI) | payer BC | END 2021-01-25 08:42 | disposition home or self-care (01) | LOC: LAB.S 08:41 | PROVIDERS: ATTEND Pharmacist | DX: T82.898A Other specified complication of vascular prosthetic devices, implants and grafts, initial encounter (principal) | CPT/HCPCS: 36416; 85610 ==

== ENCOUNTER 2021-02-08 09:29 | Outpatient (CLI) | payer MEDICARE | END 2021-02-08 09:30 | disposition home or self-care (01) | LOC: LAB.S 09:29 | PROVIDERS: ATTEND Pharmacist | DX: T82.898A Other specified complication of vascular prosthetic devices, implants and grafts, initial encounter (principal) | CPT/HCPCS: 36416; 85610 ==

== ENCOUNTER 2021-02-24 10:27 | Outpatient (CLI) | payer MEDICARE | END 2021-02-24 10:28 | disposition home or self-care (01) | LOC: LAB.S 10:27 | PROVIDERS: ATTEND Pharmacist | DX: Z79.01 Long term (current) use of anticoagulants (principal); T82.898A Other specified complication of vascular prosthetic devices, implants and grafts, initial encounter; I70.229 Atherosclerosis of native arteries of extremities with rest pain, unspecified extremity; Z98.890 Other specified postprocedural states | CPT/HCPCS: 36416; 85610 ==

== ENCOUNTER 2021-03-10 09:41 | Outpatient (CLI) | payer MEDICARE | END 2021-03-10 09:42 | disposition home or self-care (01) | LOC: LAB.S 09:41 | PROVIDERS: ATTEND Pharmacist | DX: Z79.01 Long term (current) use of anticoagulants (principal); T82.898A Other specified complication of vascular prosthetic devices, implants and grafts, initial encounter; I70.229 Atherosclerosis of native arteries of extremities with rest pain, unspecified extremity; Z98.890 Other specified postprocedural states | CPT/HCPCS: 36416; 85610 ==

== ENCOUNTER 2021-04-07 09:25 | Outpatient (CLI) | payer MEDICARE | END 2021-04-07 09:26 | disposition home or self-care (01) | LOC: LAB.S 09:25 | PROVIDERS: ATTEND Pharmacist | DX: T82.898A Other specified complication of vascular prosthetic devices, implants and grafts, initial encounter (principal); I70.229 Atherosclerosis of native arteries of extremities with rest pain, unspecified extremity; Z79.01 Long term (current) use of anticoagulants; Z98.890 Other specified postprocedural states | CPT/HCPCS: 36416; 85610 ==

== ENCOUNTER 2021-04-21 08:41 | Outpatient (CLI) | payer MEDICARE ==
[2021-04-21 15:03] LABS: INR 1.9 (0.8-1.2); PT - PROTHROMBIN TIME 20.9 secs (9.9-12.6)
== END 2021-04-21 08:42 | disposition home or self-care (01) ==
LOC: LAB.S 08:41
PROVIDERS: ATTEND Pharmacist
DX: T82.898A Other specified complication of vascular prosthetic devices, implants and grafts, initial encounter (principal); Z79.01 Long term (current) use of anticoagulants; I70.229 Atherosclerosis of native arteries of extremities with rest pain, unspecified extremity; Z98.890 Other specified postprocedural states
CPT/HCPCS: 36415; 85610

== ENCOUNTER 2021-05-12 09:29 | Outpatient (CLI) | payer MEDICARE | END 2021-05-12 09:30 | disposition home or self-care (01) | LOC: LAB.S 09:29 | PROVIDERS: ATTEND Pharmacist | DX: T82.898A Other specified complication of vascular prosthetic devices, implants and grafts, initial encounter (principal); I70.229 Atherosclerosis of native arteries of extremities with rest pain, unspecified extremity; Z79.890 Hormone replacement therapy; Z79.01 Long term (current) use of anticoagulants | CPT/HCPCS: 36416; 85610 ==

== ENCOUNTER 2021-06-02 08:39 | Outpatient (CLI) | payer MEDICARE | END 2021-06-02 08:40 | disposition home or self-care (01) | LOC: LAB.S 08:39 | PROVIDERS: ATTEND Pharmacist | DX: T82.898A Other specified complication of vascular prosthetic devices, implants and grafts, initial encounter (principal); Z79.01 Long term (current) use of anticoagulants; I70.229 Atherosclerosis of native arteries of extremities with rest pain, unspecified extremity; Z98.890 Other specified postprocedural states | CPT/HCPCS: 36416; 85610 ==

== ENCOUNTER 2021-06-23 08:59 | Outpatient (CLI) | payer MEDICARE ==
[2021-06-23 14:18] LABS: INR 2.6 (0.8-1.2); PT - PROTHROMBIN TIME 28.6 secs (9.9-12.6)
[2021-06-23 15:00] LABS: CHOL/HDL RATIO 5.4 (<5.0); CHOLESTEROL 196 mg/dL; HDL CHOLESTEROL 36 mg/dL; LDL CHOLESTEROL,CALCULATED 104 mg/dL; LDL/HDL RATIO 2.9 (<3.6); TRIGLYCERIDES 281 mg/dL; VLDL CHOLESTEROL 56 mg/dL
== END 2021-06-23 09:00 | disposition home or self-care (01) ==
LOC: LAB.S 08:59
PROVIDERS: ATTEND Pharmacist
DX: T82.898A Other specified complication of vascular prosthetic devices, implants and grafts, initial encounter (principal); Z79.01 Long term (current) use of anticoagulants; I70.229 Atherosclerosis of native arteries of extremities with rest pain, unspecified extremity; Z98.890 Other specified postprocedural states; E78.5 Hyperlipidemia, unspecified
CPT/HCPCS: 36415; 80061; 83721; 85610

== ENCOUNTER 2021-08-11 09:49 | Outpatient (CLI) | payer MEDICARE | END 2021-08-11 09:50 | disposition home or self-care (01) | LOC: LAB.S 09:49 | PROVIDERS: ATTEND Pharmacist | DX: I70.229 Atherosclerosis of native arteries of extremities with rest pain, unspecified extremity (principal); Z79.01 Long term (current) use of anticoagulants; T82.898A Other specified complication of vascular prosthetic devices, implants and grafts, initial encounter; Z98.890 Other specified postprocedural states | CPT/HCPCS: 36416; 85610 ==

== ENCOUNTER 2021-10-07 09:57 | Outpatient (CLI) | payer MEDICARE ==
[2021-10-07 14:58] LABS: CHOL/HDL RATIO 7.6 (<5.0); CHOLESTEROL 182 mg/dL; HDL CHOLESTEROL 24 mg/dL; TRIGLYCERIDES 645 mg/dL
[2021-10-07 15:52] LABS: LDL CHOLESTEROL,DIRECT 52 mg/dL; LDLD/HDL RATIO 2.2 (<3.6)
== END 2021-10-07 09:58 | disposition home or self-care (01) ==
LOC: LAB.S 09:57
PROVIDERS: ATTEND Pharmacist
DX: Z79.01 Long term (current) use of anticoagulants (principal); T82.898A Other specified complication of vascular prosthetic devices, implants and grafts, initial encounter; I70.229 Atherosclerosis of native arteries of extremities with rest pain, unspecified extremity; E78.5 Hyperlipidemia, unspecified; Z98.890 Other specified postprocedural states
CPT/HCPCS: 36415; 80061; 83721; 85610

== ENCOUNTER 2021-10-19 08:34 | Outpatient (CLI) | payer MEDICARE | END 2021-10-19 08:35 | disposition home or self-care (01) | LOC: LAB.S 08:34 | PROVIDERS: ATTEND Pharmacist | DX: Z79.01 Long term (current) use of anticoagulants (principal); T82.898A Other specified complication of vascular prosthetic devices, implants and grafts, initial encounter; I70.229 Atherosclerosis of native arteries of extremities with rest pain, unspecified extremity; Z98.890 Other specified postprocedural states | CPT/HCPCS: 36416; 85610 ==

== ENCOUNTER 2021-11-04 08:20 | Outpatient (CLI) | payer MEDICARE ==
[2021-11-04 15:14] LABS: CHOL/HDL RATIO 6.6 (<5.0); CHOLESTEROL 225 mg/dL; HDL CHOLESTEROL 34 mg/dL; TRIGLYCERIDES 431 mg/dL
[2021-11-04 15:42] LABS: LDL CHOLESTEROL,DIRECT 92 mg/dL; LDLD/HDL RATIO 2.7 (<3.6)
== END 2021-11-04 08:21 | disposition home or self-care (01) ==
LOC: LAB.S 08:20
PROVIDERS: ATTEND Internal Medicine
DX: E78.1 Pure hyperglyceridemia (principal)
CPT/HCPCS: 36415; 80061; 83721

== ENCOUNTER 2021-11-16 09:52 | Outpatient (CLI) | payer MEDICARE | END 2021-11-16 09:53 | disposition home or self-care (01) | LOC: LAB.S 09:52 | PROVIDERS: ATTEND Pharmacist | DX: Z79.01 Long term (current) use of anticoagulants (principal); T82.898A Other specified complication of vascular prosthetic devices, implants and grafts, initial encounter; I70.229 Atherosclerosis of native arteries of extremities with rest pain, unspecified extremity; Z98.890 Other specified postprocedural states | CPT/HCPCS: 36416; 85610 ==

== ENCOUNTER 2021-12-16 09:16 | Outpatient (CLI) | payer MEDICARE | END 2021-12-16 09:17 | disposition home or self-care (01) | LOC: LAB.S 09:16 | PROVIDERS: ATTEND Pharmacist | DX: Z79.01 Long term (current) use of anticoagulants (principal); T82.898A Other specified complication of vascular prosthetic devices, implants and grafts, initial encounter; I70.229 Atherosclerosis of native arteries of extremities with rest pain, unspecified extremity; Z98.890 Other specified postprocedural states | CPT/HCPCS: 36416; 85610 ==

== ENCOUNTER 2021-12-28 09:01 | Outpatient (CLI) | payer MEDICARE ==
[2021-12-28 14:52] LABS: BILIRUBIN,URINE NEGATIVE (NEGATIVE); GLUCOSE, URINE (UA) >=1000 mg/dL (NEGATIVE); KETONES,URINE (UA) NEGATIVE (NEGATIVE); LEUKOCYTE ESTERASE, URINE SMALL (NEGATIVE); NITRITE,URINE POSITIVE (NEGATIVE); OCCULT BLOOD,URINE LARGE (NEGATIVE); PROTEIN,URINE 100 mg/dL (NEGATIVE); UROBILINOGEN,URINE 0.2 (NORMAL) E.U./dL (NORMAL)
[2021-12-28 15:03] LABS: BACTERIA,URINE Few /HPF (None Seen); CLARITY,URINE CLOUDY (CLEAR); RBC,URINE TNTC /HPF (0-5); SQUAMOUS EPITHELIAL CELL,UR RARE Squamous (<= Few); WBC CLUMPS,URINE PRESENT; WBC,URINE >25 /HPF (0-3)
[2021-12-28 21:08] LABS: ESTIMATED AVERAGE GLUCOSE 315 mg/dL (70-100); HEMOGLOBIN A1c% 12.6 % (4.27-6.07)
== END 2021-12-28 09:02 | disposition home or self-care (01) ==
LOC: LAB.S 09:01
PROVIDERS: ATTEND Internal Medicine
DX: E11.9 Type 2 diabetes mellitus without complications (principal); N20.0 Calculus of kidney
CPT/HCPCS: 36415; 81001; 81003; 83036; 87086

== ENCOUNTER 2022-01-04 07:55 | Outpatient (CLI) | payer MEDICARE | END 2022-01-04 07:56 | disposition home or self-care (01) | LOC: LAB.S 07:55 | PROVIDERS: ATTEND Pharmacist | DX: Z79.01 Long term (current) use of anticoagulants (principal); T82.898A Other specified complication of vascular prosthetic devices, implants and grafts, initial encounter; I70.229 Atherosclerosis of native arteries of extremities with rest pain, unspecified extremity; Z98.890 Other specified postprocedural states | CPT/HCPCS: 36416; 85610 ==

== ENCOUNTER 2022-01-17 09:02 | Outpatient (CLI) | payer MEDICARE | END 2022-01-17 09:03 | disposition home or self-care (01) | LOC: LAB.S 09:02 | PROVIDERS: ATTEND Pharmacist | DX: Z79.01 Long term (current) use of anticoagulants (principal); T82.898A Other specified complication of vascular prosthetic devices, implants and grafts, initial encounter; I70.229 Atherosclerosis of native arteries of extremities with rest pain, unspecified extremity; Z98.890 Other specified postprocedural states | CPT/HCPCS: 36416; 85610 ==

== ENCOUNTER 2022-01-31 08:30 | Outpatient (CLI) | payer MEDICARE ==
[2022-01-31 15:35] LABS: BUN - BLOOD UREA NITROGEN 29 mg/dL (6-20); CALCIUM 9.4 mg/dL (8.5-10.3); CARBON DIOXIDE - CO2 27 mmol/L (21-32); CHLORIDE 101 mmol/L (101-111); CHOL/HDL RATIO 4.5 (<5.0); CHOLESTEROL 121 mg/dL; CREATININE 1.2 mg/dL (0.6-1.2); GFR - MDRD 61 (>89); GLUCOSE 179 mg/dL (70-100); HDL CHOLESTEROL 27 mg/dL; LDL CHOLESTEROL,CALCULATED 51 mg/dL; LDL/HDL RATIO 1.9 (<3.6); SODIUM 139 mmol/L (135-145); TRIGLYCERIDES 217 mg/dL; VLDL CHOLESTEROL 43 mg/dL
[2022-01-31 21:23] LABS: ESTIMATED AVERAGE GLUCOSE 289 mg/dL (70-100); HEMOGLOBIN A1c% 11.7 % (4.27-6.07)
== END 2022-01-31 08:31 | disposition home or self-care (01) ==
LOC: LAB.S 08:30
PROVIDERS: ATTEND Internal Medicine
DX: E78.2 Mixed hyperlipidemia (principal); E11.9 Type 2 diabetes mellitus without complications
CPT/HCPCS: 36415; 80048; 80061; 83036; 83721

== ENCOUNTER 2022-02-14 10:24 | Outpatient (CLI) | payer MEDICARE ==
[2022-02-14 15:02] LABS: BILIRUBIN,URINE NEGATIVE (NEGATIVE); GLUCOSE, URINE (UA) NEGATIVE (NEGATIVE); KETONES,URINE (UA) NEGATIVE (NEGATIVE); LEUKOCYTE ESTERASE, URINE LARGE (NEGATIVE); NITRITE,URINE POSITIVE (NEGATIVE); OCCULT BLOOD,URINE LARGE (NEGATIVE); PROTEIN,URINE TRACE mg/dL (NEGATIVE); UROBILINOGEN,URINE 0.2 (NORMAL) E.U./dL (NORMAL)
[2022-02-14 15:06] LABS: CLARITY,URINE CLOUDY (CLEAR)
[2022-02-14 16:27] LABS: SQUAMOUS EPITHELIAL CELL,UR FEW Squamous (<= Few)
[2022-02-14 16:28] LABS: BACTERIA,URINE Moderate /HPF (None Seen)
== END 2022-02-14 10:25 | disposition home or self-care (01) ==
LOC: LAB.S 10:24
PROVIDERS: ATTEND Urology
DX: N20.0 Calculus of kidney (principal)
CPT/HCPCS: 81001; 81003; 87086

== ENCOUNTER 2022-02-17 08:55 | Outpatient (CLI) | payer MEDICARE | END 2022-02-17 08:56 | disposition home or self-care (01) | LOC: LAB.S 08:55 | PROVIDERS: ATTEND Pharmacist | DX: Z79.01 Long term (current) use of anticoagulants (principal); T82.898A Other specified complication of vascular prosthetic devices, implants and grafts, initial encounter; I70.229 Atherosclerosis of native arteries of extremities with rest pain, unspecified extremity; Z98.890 Other specified postprocedural states | CPT/HCPCS: 36416; 85610 ==

== ENCOUNTER 2022-02-22 08:52 | Outpatient (CLI) | payer MEDICARE | END 2022-02-22 08:53 | disposition home or self-care (01) | LOC: LAB.S 08:52 | PROVIDERS: ATTEND Pharmacist | DX: Z79.01 Long term (current) use of anticoagulants (principal); T82.898A Other specified complication of vascular prosthetic devices, implants and grafts, initial encounter; I70.229 Atherosclerosis of native arteries of extremities with rest pain, unspecified extremity; Z98.890 Other specified postprocedural states | CPT/HCPCS: 36416; 85610 ==

== ENCOUNTER 2022-03-24 08:46 | Outpatient (CLI) | payer MEDICARE | END 2022-03-24 08:47 | disposition home or self-care (01) | LOC: LAB.S 08:46 | PROVIDERS: ATTEND Pharmacist | DX: Z79.01 Long term (current) use of anticoagulants (principal); T82.898A Other specified complication of vascular prosthetic devices, implants and grafts, initial encounter; I70.229 Atherosclerosis of native arteries of extremities with rest pain, unspecified extremity; Z98.890 Other specified postprocedural states | CPT/HCPCS: 36416; 85610 ==

== ENCOUNTER 2022-05-18 07:55 | Outpatient (CLI) | payer MEDICARE | END 2022-05-18 07:56 | disposition home or self-care (01) | LOC: LAB.S 07:55 | PROVIDERS: ATTEND Pharmacist | DX: Z79.01 Long term (current) use of anticoagulants (principal); T82.898A Other specified complication of vascular prosthetic devices, implants and grafts, initial encounter; I70.229 Atherosclerosis of native arteries of extremities with rest pain, unspecified extremity; Z98.890 Other specified postprocedural states | CPT/HCPCS: 36416; 85610 ==

== ENCOUNTER 2022-05-24 10:58 | Outpatient (CLI) | payer MEDICARE ==
[2022-05-24 14:39] LABS: BILIRUBIN,URINE NEGATIVE (NEGATIVE); GLUCOSE, URINE (UA) NEGATIVE (NEGATIVE); KETONES,URINE (UA) NEGATIVE (NEGATIVE); LEUKOCYTE ESTERASE, URINE NEGATIVE (NEGATIVE); NITRITE,URINE NEGATIVE (NEGATIVE); OCCULT BLOOD,URINE NEGATIVE (NEGATIVE); PROTEIN,URINE NEGATIVE (NEGATIVE); UROBILINOGEN,URINE 0.2 (NORMAL) E.U./dL (NORMAL)
[2022-05-24 14:45] LABS: CLARITY,URINE CLOUDY (CLEAR)
[2022-05-24 14:56] LABS: RBC,URINE 0-5 /HPF (0-5)
[2022-05-24 14:57] LABS: BACTERIA,URINE Few /HPF (None Seen); CASTS, URINE 0-2 Hyaline Casts /LPF; SQUAMOUS EPITHELIAL CELL,UR FEW Squamous (<= Few)
[2022-05-24 15:09] LABS: CALCIUM 10.1 mg/dL (8.5-10.3); CREATININE 1.5 mg/dL (0.6-1.2); POTASSIUM 3.8 mmol/L (3.5-5.0)
== END 2022-05-24 10:59 | disposition home or self-care (01) ==
LOC: LAB.S 10:58
PROVIDERS: ATTEND Internal Medicine
DX: N17.9 Acute kidney failure, unspecified (principal)
CPT/HCPCS: 36415; 80048; 81001; 87086

== ENCOUNTER 2022-06-08 10:07 | Outpatient (CLI) | payer MEDICARE | END 2022-06-08 10:08 | disposition home or self-care (01) | LOC: LAB.S 10:07 | PROVIDERS: ATTEND Pharmacist | DX: Z79.01 Long term (current) use of anticoagulants (principal); T82.898A Other specified complication of vascular prosthetic devices, implants and grafts, initial encounter; I70.229 Atherosclerosis of native arteries of extremities with rest pain, unspecified extremity; Z98.890 Other specified postprocedural states | CPT/HCPCS: 36416; 85610 ==

== ENCOUNTER 2022-06-23 08:41 | Outpatient (CLI) | payer MEDICARE | END 2022-06-23 08:42 | disposition home or self-care (01) | LOC: LAB.S 08:41 | PROVIDERS: ATTEND Pharmacist | DX: Z79.01 Long term (current) use of anticoagulants (principal); T82.898A Other specified complication of vascular prosthetic devices, implants and grafts, initial encounter; I70.229 Atherosclerosis of native arteries of extremities with rest pain, unspecified extremity; Z98.890 Other specified postprocedural states | CPT/HCPCS: 36416; 85610 ==

== ENCOUNTER 2022-07-21 09:05 | Outpatient (CLI) | payer MEDICARE ==
[2022-07-21 14:49] LABS: ALBUMIN 4.3 g/dL (3.2-5.5); CALCIUM 9.6 mg/dL (8.5-10.3); CREATININE 1.5 mg/dL (0.6-1.2); PHOSPHORUS 2.7 mg/dL (2.5-4.6); POTASSIUM 4.2 mmol/L (3.5-5.0)
== END 2022-07-21 09:06 | disposition home or self-care (01) ==
LOC: LAB.S 09:05
PROVIDERS: ATTEND Internal Medicine Nephrology
DX: N20.0 Calculus of kidney (principal)
CPT/HCPCS: 36415; 80069; 83735

== ENCOUNTER 2022-08-05 08:20 | Outpatient (CLI) | payer MEDICARE | END 2022-08-05 08:21 | disposition home or self-care (01) | LOC: LAB.S 08:20 | PROVIDERS: ATTEND Pharmacist | DX: Z79.01 Long term (current) use of anticoagulants (principal); T82.898A Other specified complication of vascular prosthetic devices, implants and grafts, initial encounter; I70.229 Atherosclerosis of native arteries of extremities with rest pain, unspecified extremity; Z98.890 Other specified postprocedural states | CPT/HCPCS: 36416; 85610 ==

== ENCOUNTER 2022-09-26 09:39 | Outpatient (CLI) | payer MEDICARE ==
[2022-09-26 14:44] LABS: ALBUMIN 4.9 g/dL (3.2-5.5); CALCIUM 10.4 mg/dL (8.5-10.3); CREATININE 1.4 mg/dL (0.6-1.3); PHOSPHORUS 2.6 mg/dL (2.5-5.0); POTASSIUM 4.1 mmol/L (3.5-4.5)
== END 2022-09-26 09:40 | disposition home or self-care (01) ==
LOC: LAB.S 09:39
PROVIDERS: ATTEND Internal Medicine
DX: Z79.01 Long term (current) use of anticoagulants (principal); N17.9 Acute kidney failure, unspecified; T82.898A Other specified complication of vascular prosthetic devices, implants and grafts, initial encounter; I70.229 Atherosclerosis of native arteries of extremities with rest pain, unspecified extremity; Z98.890 Other specified postprocedural states
CPT/HCPCS: 36415; 80069; 85610

== ENCOUNTER 2022-12-05 08:54 | Outpatient (CLI) | payer MEDICARE | END 2022-12-05 08:55 | disposition home or self-care (01) | LOC: LAB.S 08:54 | PROVIDERS: ATTEND Pharmacist | DX: Z79.01 Long term (current) use of anticoagulants (principal); T82.898A Other specified complication of vascular prosthetic devices, implants and grafts, initial encounter; I70.229 Atherosclerosis of native arteries of extremities with rest pain, unspecified extremity; Z98.890 Other specified postprocedural states | CPT/HCPCS: 36416; 85610 ==

== ENCOUNTER 2023-01-16 08:53 | Outpatient (CLI) | payer MEDICARE ==
[2023-01-16 15:44] LABS: ALBUMIN 4.4 g/dL (3.2-5.5); CALCIUM 10.1 mg/dL (8.5-10.3); CREATININE 1.4 mg/dL (0.6-1.3); PHOSPHORUS 2.9 mg/dL (2.5-5.0); POTASSIUM 3.8 mmol/L (3.5-4.5)
[2023-01-16 15:58] LABS: CREATININE,URINE 168.3 mg/dL; MICROALBUMIN,URINE 2.7 mg/dL
== END 2023-01-16 08:54 | disposition home or self-care (01) ==
LOC: LAB.S 08:53
PROVIDERS: ATTEND Pharmacist
DX: T82.898A Other specified complication of vascular prosthetic devices, implants and grafts, initial encounter (principal); Z79.01 Long term (current) use of anticoagulants; I70.229 Atherosclerosis of native arteries of extremities with rest pain, unspecified extremity; Z98.890 Other specified postprocedural states; Z87.442 Personal history of urinary calculi; R80.9 Proteinuria, unspecified
CPT/HCPCS: 36415; 80069; 82043; 82570; 85610

== ENCOUNTER 2023-02-21 11:08 | Outpatient (CLI) | payer MEDICARE ==
[2023-02-21 14:58] LABS: BASOPHILS # (AUTO) 0.1 10^3/uL (0.0-0.1); EOSINOPHILS # (AUTO) 0.8 10^3/uL (0.0-0.7); EOSINOPHILS % (AUTO) 7.1 %; HCT - HEMATOCRIT 42.8 % (42.0-52.0); HGB - HEMOGLOBIN 14.3 g/dL (14.0-18.0); LYMPHOCYTES # (AUTO) 3.6 10^3/uL (1.5-3.5); LYMPHOCYTES % (AUTO) 30.4 %; MEAN CORPUSCULAR HEMOGLOBIN 31.6 pg (27.0-31.0); MEAN CORPUSCULAR HGB CONC 33.4 g/dL (32.0-36.0); MEAN CORPUSCULAR VOLUME 94.5 fL (80.0-94.0); MEAN PLATELET VOLUME 11.1 fL (7.4-11.4); MONOCYTES # (AUTO) 1.2 10^3/uL (0.0-1.0); MONOCYTES % (AUTO) 9.8 %; NEUTROPHILS # (AUTO) 6.1 10^3/uL (1.5-6.6); NEUTROPHILS % (AUTO) 51.4 %; PLT - PLATELET COUNT 259 10^3/uL (130-450); RED BLOOD COUNT 4.53 10^6/uL (4.70-6.10); RED CELL DISTRIBUTION WIDTH 13.8 % (12.0-15.0); WHITE BLOOD COUNT 11.8 x10^3/uL (4.8-10.8)
[2023-02-21 15:49] LABS: CREATININE 1.4 mg/dL (0.6-1.3)
== END 2023-02-21 11:09 | disposition home or self-care (01) ==
LOC: LAB.S 11:08
PROVIDERS: ATTEND Pharmacist
DX: I70.229 Atherosclerosis of native arteries of extremities with rest pain, unspecified extremity (principal); T82.898A Other specified complication of vascular prosthetic devices, implants and grafts, initial encounter; Z98.890 Other specified postprocedural states; Z51.81 Encounter for therapeutic drug level monitoring; Z79.01 Long term (current) use of anticoagulants
CPT/HCPCS: 36415; 82565; 85025; 85610

== ENCOUNTER 2023-03-13 09:16 | Outpatient (CLI) | payer MEDICARE | END 2023-03-13 09:17 | disposition home or self-care (01) | LOC: LAB.S 09:16 | PROVIDERS: ATTEND Pharmacist | DX: T82.898A Other specified complication of vascular prosthetic devices, implants and grafts, initial encounter (principal); Z79.01 Long term (current) use of anticoagulants; I70.229 Atherosclerosis of native arteries of extremities with rest pain, unspecified extremity; Z98.890 Other specified postprocedural states | CPT/HCPCS: 36416; 85610 ==

== ENCOUNTER 2023-03-28 09:12 | Outpatient (CLI) | payer MEDICARE | END 2023-03-28 09:13 | disposition home or self-care (01) | LOC: LAB.S 09:12 | PROVIDERS: ATTEND Pharmacist | DX: T82.898A Other specified complication of vascular prosthetic devices, implants and grafts, initial encounter (principal); Z79.01 Long term (current) use of anticoagulants; I70.229 Atherosclerosis of native arteries of extremities with rest pain, unspecified extremity; Z98.890 Other specified postprocedural states | CPT/HCPCS: 36416; 85610 ==

== ENCOUNTER 2023-04-25 08:28 | Outpatient (CLI) | payer MEDICARE | END 2023-04-25 08:29 | disposition home or self-care (01) | LOC: LAB.S 08:28 | PROVIDERS: ATTEND Pharmacist | DX: Z79.01 Long term (current) use of anticoagulants (principal); T82.898A Other specified complication of vascular prosthetic devices, implants and grafts, initial encounter; I70.229 Atherosclerosis of native arteries of extremities with rest pain, unspecified extremity; Z98.890 Other specified postprocedural states | CPT/HCPCS: 36416; 85610 ==

== ENCOUNTER 2023-05-29 08:30 | Outpatient (CLI) | payer MEDICARE ==
[2023-05-29 14:54] LABS: ESTIMATED AVERAGE GLUCOSE 131 mg/dL (70-100); HEMOGLOBIN A1c% 6.2 % (4.27-6.07)
[2023-05-29 15:15] LABS: CHOL/HDL RATIO 3.1 (<5.0); CHOLESTEROL 106 mg/dL; HDL CHOLESTEROL 34 mg/dL; LDL CHOLESTEROL,CALCULATED 42 mg/dL; LDL/HDL RATIO 1.2 (<3.6); TRIGLYCERIDES 152 mg/dL (48-352); VLDL CHOLESTEROL 30 mg/dL
== END 2023-05-29 08:31 | disposition home or self-care (01) ==
LOC: LAB.S 08:30
PROVIDERS: ATTEND Pharmacist
DX: Z79.01 Long term (current) use of anticoagulants (principal); T82.898A Other specified complication of vascular prosthetic devices, implants and grafts, initial encounter; I70.229 Atherosclerosis of native arteries of extremities with rest pain, unspecified extremity; Z98.890 Other specified postprocedural states; E11.9 Type 2 diabetes mellitus without complications; I25.10 Atherosclerotic heart disease of native coronary artery without angina pectoris
CPT/HCPCS: 36415; 80061; 83036; 83721; 85610

== ENCOUNTER 2023-06-19 08:57 | Outpatient (CLI) | payer MEDICARE | END 2023-06-19 08:58 | disposition home or self-care (01) | LOC: LAB.S 08:57 | PROVIDERS: ATTEND Pharmacist | DX: T82.898A Other specified complication of vascular prosthetic devices, implants and grafts, initial encounter (principal); Z79.01 Long term (current) use of anticoagulants; I70.229 Atherosclerosis of native arteries of extremities with rest pain, unspecified extremity; Z98.890 Other specified postprocedural states | CPT/HCPCS: 36416; 85610 ==

== ENCOUNTER 2023-06-26 09:36 | Outpatient (CLI) | payer MEDICARE | END 2023-06-26 09:37 | disposition home or self-care (01) | LOC: LAB.S 09:36 | PROVIDERS: ATTEND Pharmacist | DX: T82.898A Other specified complication of vascular prosthetic devices, implants and grafts, initial encounter (principal); Z79.01 Long term (current) use of anticoagulants; I70.229 Atherosclerosis of native arteries of extremities with rest pain, unspecified extremity; Z98.890 Other specified postprocedural states | CPT/HCPCS: 36416; 85610 ==

== ENCOUNTER 2023-07-25 08:42 | Outpatient (CLI) | payer MEDICARE | END 2023-07-25 08:43 | disposition home or self-care (01) | LOC: LAB.S 08:42 | PROVIDERS: ATTEND Pharmacist | DX: T82.898A Other specified complication of vascular prosthetic devices, implants and grafts, initial encounter (principal); Z79.01 Long term (current) use of anticoagulants; I70.229 Atherosclerosis of native arteries of extremities with rest pain, unspecified extremity; Z98.890 Other specified postprocedural states | CPT/HCPCS: 36416; 85610 ==

== ENCOUNTER 2023-09-01 07:56 | Outpatient (CLI) | payer MEDICARE ==
[2023-09-01 15:47] LABS: BASOPHILS # (AUTO) 0.1 10^3/uL (0.0-0.1); BASOPHILS % (AUTO) 0.6 %; EOSINOPHILS # (AUTO) 0.4 10^3/uL (0.0-0.7); EOSINOPHILS % (AUTO) 4.9 %; HCT - HEMATOCRIT 40.9 % (42.0-52.0); LYMPHOCYTES # (AUTO) 2.4 10^3/uL (1.5-3.5); LYMPHOCYTES % (AUTO) 26.8 %; MEAN CORPUSCULAR HEMOGLOBIN 31.5 pg (27.0-31.0); MEAN CORPUSCULAR HGB CONC 31.8 g/dL (32.0-36.0); MEAN PLATELET VOLUME 10.7 fL (7.4-11.4); MONOCYTES # (AUTO) 0.9 10^3/uL (0.0-1.0); MONOCYTES % (AUTO) 9.9 %; NEUTROPHILS # (AUTO) 5.1 10^3/uL (1.5-6.6); NEUTROPHILS % (AUTO) 57.6 %; PLT - PLATELET COUNT 249 10^3/uL (130-450); RED BLOOD COUNT 4.13 10^6/uL (4.70-6.10); RED CELL DISTRIBUTION WIDTH 14.8 % (12.0-15.0); WHITE BLOOD COUNT 8.8 x10^3/uL (4.8-10.8)
[2023-09-01 15:49] LABS: ALBUMIN 4.7 g/dL (3.2-5.5); CREATININE 1.6 mg/dL (0.6-1.3); PHOSPHORUS 3.2 mg/dL (2.5-5.0); POTASSIUM 3.7 mmol/L (3.5-4.5)
[2023-09-01 20:41] LABS: ESTIMATED AVERAGE GLUCOSE 123 mg/dL (70-100); HEMOGLOBIN A1c% 5.9 % (4.27-6.07)
== END 2023-09-01 07:57 | disposition home or self-care (01) ==
LOC: LAB.S 07:56
PROVIDERS: ATTEND Internal Medicine
DX: E11.22 Type 2 diabetes mellitus with diabetic chronic kidney disease (principal); N18.31 Chronic kidney disease, stage 3a
CPT/HCPCS: 36415; 80069; 83036; 85025